=== PATIENT | male | born 1960 | race Caucasian/White ===

== ENCOUNTER 2017-06-29 12:13 | Emergency (ER) | payer OTHER ==
[2017-06-29 12:48] LABS: BASOPHIL % 0.8 % (0-2); PLATELET COUNT 295 x10^3mcL (130-400); RED CELL DISTRIBUTION WIDTH 16.8 % (11.5-14.5)
[2017-06-29 12:59] LABS: ALBUMIN 3.4 g/dL (3.4-5.0); ALKALINE PHOSPHATASE 101 U/L (46-116); ALT/SGPT 55 U/L (16-63); AST/SGOT 66 U/L (15-37); BILIRUBIN TOTAL 0.33 mg/dL (0.20-1.00); CALCIUM 8.6 mg/dL (8.5-10.1); CARBON DIOXIDE 27.5 mmol/L (21-32); CHLORIDE SERUM 98 mmol/L (98-107); CREATININE SERUM 0.8 mg/dL (0.7-1.3); GFR1 > 60 mL/min; GLUCOSE SERUM 97 mg/dL (74-106); SODIUM SERUM 139 mmol/L (136-145)
[2017-06-29 13:02] LABS: TOTAL PROTEIN, SERUM 8.3 g/dL (6.4-8.2)
[2017-06-29 13:11] LABS: AMPHETAMINE QUAL UR NONE DETECTED (NEG <=1000)
[2017-06-29 13:11] LABS: POTASSIUM SERUM 2.8 mmol/L (3.5-5.1)
[2017-06-29 17:13] VITALS: BP 158/111
== END 2017-06-29 17:13 | disposition short-term general hospital (02) ==
LOC: ED 12:13
PROVIDERS: Emergency Medicine
DX: F10.239 Alcohol dependence with withdrawal, unspecified (principal); F10.229 Alcohol dependence with intoxication, unspecified; E87.6 Hypokalemia; I10 Essential (primary) hypertension
CPT/HCPCS: G0480; J3360; J3490